=== PATIENT | female | born 1985 | race African-American/Black ===

== ENCOUNTER 2017-01-02 23:55 | Emergency (ER) | payer OTHER ==
--- NOTE | ~2017-01-02 | CT2 ---
[facility] A Service of [facility] & [facility] RADIOLOGY TEXT RESULTS PATIENT: CARLENE BYERS LOCATION: [facility] : 87 UNIT #: [id number] AGE: [address]: Karen Reddy APRN SEX: F ORDER DR: [id number] [facility] [address] [place], [place] [address] [id number] E MR#: [id number] Acc #: [id number] NAME: CARLENE BYERS : 1985 SEX: F STUDY DATE/TIME: 01/03/2017 4:52 UNIT: [facility] ROOM: STUDY DESCRIPTION: CT Abd and Pelv W Cont Attending Physician: Karen Reddy A.P.R.N. Ordering Physician: Karen Reddy A.P.R.N. Primary Care Physician: Primary Care Physician No MEDICAL IMAGING REPORT This report is preliminary unless electronic signature is present EXAM CT abdomen and pelvis with contrast 01/03/2017 HISTORY Lower abdominal pain since 1999. Inability to eat. COMPARISON None. PROCEDURE 5 mm axial images from the lung bases through the lesser trochanters after intravenous contrast administration. Enteric contrast was not administered. Sagittal and coronal reformatted images were obtained. This CT examination was performed with one or more of the following radiation dose reduction techniques: automatic exposure control, adjustment of mA and/or kV according to patient size, and iterative reconstruction. FINDINGS ABDOMEN: Lung bases are free of consolidation. Heart size is within normal limits. The liver, gallbladder, spleen, pancreas, adrenals and kidneys are within normal limits. The appendix appears nonthickened and noninflamed. There is mild air and fluid distension of large and small bowel loops, but there is no convincing evidence of high-grade large or small bowel obstruction. No abnormal large or small bowel wall thickening or inflammatory changes are appreciated on this examination. Limited evaluation due to lack of enteric contrast. PELVIS: Urinary bladder, rectum normal. Left ovarian cystic changes are present, measuring approximately 1.6 and 1.3 cm, respectively. The left ovary is located somewhat higher in the pelvis than is typically seen, and the uterus is deviated toward the left of midline. No pelvic free fluid is identified. Right ovary is not well visualized on this examination. [facility] A Service of [facility] RADIOLOGY TEXT RESULTS PATIENT: CARLENE BYERS LOCATION: [facility] : 87 UNIT #: [id number] AGE: [address]: Karen Reddy APRN SEX: F ORDER DR: There is an umbilical hernia containing nonobstructed bowel loops. No acute osseous abnormalities are identified. IMPRESSION 1. There is mild gaseous distension of large and small bowel loops which may represent a mild ileus pattern but there is no convincing evidence of high-grade bowel obstruction. 2. An umbilical hernia contains nonobstructed bowel. 3. 2 cystic foci are demonstrated within the left ovary measuring 1.6 and 1.3 cm. Left ovary is located somewhat higher in the pelvis than is typically seen which may be a congenital variant for this patient. No pelvic free fluid is identified. 4. The appendix is normal. 5. No pelvic free fluid is identified. Dictated by... Anna Ayon M.D. THIS IS AN ELECTRONICALLY VERIFIED REPORT Anna Ayon M.D. at 01/04/2017 9:59 PM ASHLEY/bambi TD: 01/03/2017 08:49 JOB #: [id number] MEDICAL IMAGING REPORT Page 1 of 1 COPY
[2017-01-03 02:11] LABS: URINE SOURCE CLEAN CATCH
[2017-01-03 02:16] LABS: URINE APPEARANCE CLEAR; URINE BILIRUBIN NEG (NEG); URINE BLOOD NEG (NEG); URINE COLOR YELLOW; URINE GLUCOSE NEG (NEG); URINE KETONE NEG (NEG); URINE LEUKOCYTE ESTERASE NEG (NEG); URINE NITRATE NEG (NEG); URINE PROTEIN NEG (NEG); URINE SPECIFIC GRAVITY 1.032 (1.003-1.035)
[2017-01-03 02:20] LABS: CULTURE INDICATED? NO
[2017-01-03 03:24] LABS: BASOPHIL% 0.3 % (0-2.5); EOSINOPHIL# 0.2 X10e3 (0-0.7); EOSINOPHIL% 3.2 % (0.0-7.0); HEMATOCRIT 41.6 % (35.0-45.0); HEMOGLOBIN 13.8 gm/dL (12.0-16.0); LYMPHOCYTE# 2.2 X10e3 (1.0-3.5); MEAN CELL VOLUME 89.5 FL (83-96); MEAN CORPUSCULAR HEMOGLOBIN 29.6 PG (28-34); MEAN CORPUSCULAR HGB CONC 33.1 g/dL (30-36); MONOCYTE# 0.8 X10e3 (0-1.0); NEUTROPHIL# 4.3 X10e3 (1.5-7.1); NEUTROPHIL% 56.5 % (40-75); PLATELET COUNT 175 X10e3 (140-420); RED BLOOD COUNT 4.66 X10e (3.90-5.30); RED CELL DISTRIBUTION WIDTH 12.7 % (11.0-15.5); WHITE BLOOD COUNT 7.7 X10e3 (4.0-10.5)
[2017-01-03 03:30] LABS: DIFF IND NO
[2017-01-03 03:54] LABS: ALBUMIN SERUM 4.1 g/dL (3.5-5.0); BILIRUBIN, DIRECT 0.1 mg/dL (0.0-0.2); BILIRUBIN,INDIRECT 0.3 mg/dL (0.0-0.9); BILIRUBIN,TOTAL 0.4 mg/dL (0.2-2.0); CALCIUM SERUM 8.6 mg/dL (8.4-10.2); CREATININE SERUM 0.5 mg/dL (0.6-1.4); GLOM FILT RATE Estimated 150.5 mL/min (>60); POTASSIUM 3.2 mmol/L (3.5-5.1); PROTEIN TOTAL SERUM 7.3 g/dL (6.0-8.3)
[2017-01-04 21:05] LABS: CHLAMYDIA TRACH Not Detected (Not Detected); N GONOR Not Detected (Not Detected)
== END 2017-01-03 07:06 | disposition home or self-care (01) ==
LOC: CED 23:55
PROVIDERS: Nurse Practitioner
DX: N76.0 Acute vaginitis (principal)
CPT/HCPCS: 36415; 74177; 80048; 80076; 81003; 82150; 83690; 84703; 85025; 87491; 87591; 87808; 87905; 96361; 96374; 96375; 99284; J1885; Q9967